=== PATIENT | male | born 1955 | race Two or more races ===

== ENCOUNTER → 2017-03-05 | Outpatient (CLI) | payer OTHER | END | disposition home or self-care (01) | LOC: Rad HDHVI 14:53 | PROVIDERS: ATTEND Internal Medicine Cardiovascular Disease | DX: I10 Essential (primary) hypertension (principal) | CPT/HCPCS: 93306 ==

== ENCOUNTER → 2017-03-10 | Outpatient (CLI) | payer OTHER ==
[~2017-03-10] VITALS: Ht 170.2 cm; Wt 104.3 kg
== END | disposition home or self-care (01) ==
LOC: Rad HDHVI 13:57
PROVIDERS: ATTEND Internal Medicine Cardiovascular Disease
DX: I10 Essential (primary) hypertension (principal); E78.5 Hyperlipidemia, unspecified; F41.9 Anxiety disorder, unspecified; R63.8 Other symptoms and signs concerning food and fluid intake; R06.00 Dyspnea, unspecified
CPT/HCPCS: 78452; 93017; 96374; A9500

== ENCOUNTER → 2022-10-26 | Outpatient (CLI) | payer OTHER ==
[~2022-10-26] VITALS: Ht 170.2 cm; Wt 129.7 kg
[~2022-10-26] MED LIST: REGADENOSON 0.4 MG/5 ML SYRG IV ONE
[2022-10-26 08:54] VITALS: BP 134/74
== END | disposition home or self-care (01) ==
LOC: XYW 07:07
PROVIDERS: ATTEND Specialist
DX: R06.02 Shortness of breath (principal)
CPT/HCPCS: 78452; 93017; A9500; J2785

== ENCOUNTER 2023-01-01 06:56 | Day surgery (SDC) | payer OTHER ==
[~2023-01-01] VITALS: Ht 170.2 cm; Wt 122.0 kg
[~2023-01-01 06:56] MED LIST changes: +ALLO300T2 PO; +ASPI-543 PO; +ATO40T PO; +CHOL20007 PO; +FURO20TA3 PO; +IBUP200C14 PO; +POTA1TAB61 PO; -REGADENOSON 0.4 MG/5 ML SYRG IV ONE; +TAMS0.4C36 PO
[2023-01-01] MEDS ORDERED: VERAPAMIL 2.5MG/ML INJ 2ML VIAL IV ONE (08:52)
[2023-01-01] MEDS ORDERED: fentaNYL CITRATE 100 MCG/2 ML VL ONE (08:52)
[2023-01-01] MEDS ORDERED: HEPARIN SODIUM (PORCINE) 5000 UNITS/ML 1ML VIAL ONE ×2 (08:52)
[2023-01-01] MEDS ORDERED: ANGIOMAX 250 MG VIAL IV ONE ×2 (08:52→09:42)
[2023-01-01] MEDS ORDERED: MIDAZOLAM HCL 2MG/2ML 2ml VIAL (1mg/ml) ONE (08:52)
[2023-01-01] MEDS ORDERED: SODIUM CHL 0.9% 50 ML ONE ×2 (08:52→09:42)
[2023-01-01] MEDS ORDERED: IODIXANOL 320MG/ML 100ML BTL IV ONE ×3 (08:53→09:39)
[2023-01-01] MEDS ORDERED: LIDOCAINE 2%HCL (LOCAL ANESTH.) INJ 10ml MDV ONE (08:53)
[2023-01-01] MEDS ORDERED: TICAGRELOR 90 MG TAB ONE (09:31)
[2023-01-01] MEDS ORDERED: ASPirin 81 mg TAB ONE (09:55)
[2023-01-01] MEDS ORDERED: TICA90TA PO (10:33)
== END 2023-01-01 12:36 | disposition home or self-care (01) ==
LOC: CATH 06:56
PROVIDERS: ATTEND Internal Medicine Cardiovascular Disease
DX: R94.39 Abnormal result of other cardiovascular function study (principal); I25.10 Atherosclerotic heart disease of native coronary artery without angina pectoris; I10 Essential (primary) hypertension; E78.5 Hyperlipidemia, unspecified; G47.33 Obstructive sleep apnea (adult) (pediatric); E66.01 Morbid (severe) obesity due to excess calories; Z68.41 Body mass index [BMI] 40.0-44.9, adult; Z79.82 Long term (current) use of aspirin; Z79.1 Long term (current) use of non-steroidal anti-inflammatories (NSAID); Z79.899 Other long term (current) drug therapy; Z87.891 Personal history of nicotine dependence
CPT/HCPCS: 93458; 93571; C1725; C1769; C1874; C1887; C1894; C9600; J0583; J1644; J2001; J2250; J3010; J7040; Q9967; 99152; 99153

== ENCOUNTER 2025-04-13 06:42 | Day surgery (SDC) | payer OTHER, MEDICAID ==
[~2025-04-13] VITALS: Ht 170.2 cm; Wt 111.1 kg
[~2025-04-13 06:42] MED LIST changes: +ACET-1304 PO; -ASPI-543 PO; -ATO40T PO; +ATOR-507 PO; -CHOL20007 PO; +CLOP75TA70 PO; -FURO20TA3 PO; -IBUP200C14 PO; -POTA1TAB61 PO; -TAMS0.4C36 PO; +TAMS0.4C39 PO
[2025-04-13] MEDS ORDERED: HEPARIN SODIUM (PORCINE) 5000 UNITS/ML 1ML VIAL ONE (07:18)
[2025-04-13] MEDS ORDERED: PROPOFOL 10 MG/ML 20 ML IV ONE (07:47)
[2025-04-13] MEDS ORDERED: GLYCOPYRROLATE 0.2 MG/ML 1ML VIAL ONE (07:47)
[2025-04-13] MEDS ORDERED: fentaNYL CITRATE 100 MCG/2 ML VL ONE (07:47)
[2025-04-13] MEDS ORDERED: ROCURONIUM 10MG/ML 10ML VIAL IV ONE (07:47)
[2025-04-13] MEDS ORDERED: ONDANSETRON HCL 4 MG/2 ML VIAL ONE (07:47)
[2025-04-13] MEDS ORDERED: LIDOCAINE 2% (LOCAL ANESTH.) PF 5ml SDV ONE (07:47)
[2025-04-13] MEDS ORDERED: KETOROLAC TROMETH 30 MG/ML 1ML VIAL ONE (07:47)
[2025-04-13] MEDS ORDERED: KETAMINE 50mg/ML 1ml syringe ONE (07:47)
[2025-04-13] MEDS ORDERED: SUGAMMADEX 200mg/2ml Vial (100MG/ML) IV ONE (07:47)
[2025-04-13] MEDS ORDERED: ACETAMINOPHEN IV 1000 MG/100ML (10MG/ML) IV ONE (08:15)
[2025-04-13] MEDS ORDERED: BUPIVACAINE HCL 50 ML ONE (08:18)
[2025-04-13] MEDS: ceFAZolin 2 GM/D5W50ml 50 ML IV ONE (08:32)
[2025-04-13] MEDS: LIDOCAINE 1% HCL (LOCAL ANESTH.) INJ 20ML MDV ONE (08:50)
[2025-04-13] MEDS ORDERED: METOPROLOL TARTRATE 1MG/1ML-5ML VIAL IV ONE (08:57)
[2025-04-13 09:30] VITALS: PULSE 91; RESP 20; O2SAT 96
[2025-04-13 09:40] VITALS: PULSE 93; RESP 19; O2SAT 96
[2025-04-13] MEDS ORDERED: ONDANSETRON HCL 4 MG/2 ML VIAL IV PRN (09:45)
[2025-04-13] MEDS ORDERED: hydrALAZINE HCL 20 MG/ML VL IV PRN (09:45)
[2025-04-13] MEDS ORDERED: HYDROmorphone HCL 2 MG/ML VL/or syr IV PRN (09:45)
[2025-04-13] MEDS ORDERED: NALOXONE HCL 0.4 MG/ML VIAL IV PRN (09:45)
[2025-04-13] MEDS: CELECOXIB 100 MG CAP PO ONE (09:45)
[2025-04-13] MEDS ORDERED: FLUMAZENIL 0.1 MG/ML INJ 10ML MDV IV PRN (09:45)
[2025-04-13] MEDS: GABAPENTIN 300 MG CAP PO ONE (09:45)
[2025-04-13] MEDS ORDERED: fentaNYL CITRATE 100 MCG/2 ML VL IV PRN (09:45)
--- NOTE | 2025-04-13 09:55 | DVHOP ---
DATE OF SURGERY: 04/13/2025 PREOPERATIVE DIAGNOSIS: Umbilical hernia. POSTOPERATIVE DIAGNOSIS: Incarcerated 2 cm umbilical hernia. PROCEDURE: Primary repair of incarcerated 2 cm umbilical hernia. SURGEON: Villa Townsend MD SALES PROJECT ADMINISTRATOR: None. ANESTHESIOLOGIST: Julio Santiago CRNA. ANESTHESIA: General by means of endotracheal intubation. INTRAOPERATIVE FINDINGS: Incarcerated preperitoneal fat within a 2 cm umbilical hernia. EBL: Minimal. IV FLUIDS: Per Anesthesia charting. URINE OUTPUT: Not recorded given Collazo catheter was not inserted. DRAINS: None. IMPLANTS: None. SPECIMENS: None. COMPLICATIONS: None. DISPOSITION: Procedure well tolerated, transferred to recovery room in stable condition. INDICATION FOR PROCEDURE: The patient is a 69-year-old male with an incarcerated umbilical hernia. Based on the above-mentioned information, he was recommended to undergo repair possibly with mesh. The procedure, risks and benefits were explained in detailed and extensive fashion. All questions were answered. He understood and agreed to proceed. DESCRIPTION OF PROCEDURE: The patient was taken to the operating room and placed in the dorsal decubitus position on the operating room table. Once adequate anesthesia was achieved, the abdomen was widely clipped from all hair surrounding the surgical field and the abdomen and pelvis were widely prepped and draped in the usual sterile fashion. The patient received prophylactic antibiotics as well as prophylactic heparin. My attention was directed towards the suprapubic region where local anesthesia consisting of 1% lidocaine/ 0.5% Marcaine was infiltrated. An infraumbilical curvilinear incision was made with a #15 blade. The dermis and subcutaneous tissue were incised to the level of fascia with electrocautery. Circumferential dissection of the hernia sac and umbilicus stalk was performed in a blunt fashion with a clamp. The umbilicus stalk was divided from the hernia sac using electrocautery without damage or injury to the skin or the hernia sac fat content. The patient was noted to have preperitoneal fat incarcerated within. The hernia sac was dissected and successfully reduced. The hernia measured 2 cm. The intention was to repair the hernia with mesh given the patient's risk factors for recurrent hernia. Unfortunately, the 4.3 cm Ventralex mesh was not available. Therefore, I was forced to repair the hernia in a primary fashion using several interrupted 0 Vicryl sutures in a [id number] fashion, successfully repairing the hernia in a primary fashion. The umbilical stalk was tacked down to the underlying fascia by means of interrupted 3-0 Vicryl suture, obtaining adequate inversion as well as cosmetic result. The subcutaneous tissue and dermis were approximated with several interrupted 3-0 Vicryl sutures. The skin was closed with 4-0 Monocryl in a subcuticular fashion. The wound was washed and dried. Sterile dressings were applied. The patient tolerated well the procedure. There were no complications. He was successfully extubated in the operating room and transferred to the recovery room in stable condition. Villa Townsend MD [facility] TID: [id number] RECEIPT: [id number]
[2025-04-13 10:15] VITALS: BP 135/78; PULSE 86; RESP 15; O2SAT 95
== END 2025-04-13 10:30 | disposition home or self-care (01) ==
LOC: SUR 06:42
DX: K42.0 Umbilical hernia with obstruction, without gangrene (principal); E66.01 Morbid (severe) obesity due to excess calories; Z79.01 Long term (current) use of anticoagulants; Z87.891 Personal history of nicotine dependence; Z79.899 Other long term (current) drug therapy
CPT/HCPCS: 49592; 86850; 86900; 86901; J0690; J1100; J1644; J1885; J2003; J2405; J2704; J3490; J0131